=== PATIENT | female | born 1990 | race African-American/Black ===

== ENCOUNTER 2025-08-08 18:46 | Outpatient (CLI) | payer OTHER, SELFPAY ==
[2025-08-09 14:23] LABS: Strep B DNA Probe POSITIVE (Negative)
[2025-08-09 14:42] LABS: Strep B Susceptibility Needed? No
== END 2025-08-08 18:47 | disposition home or self-care (01) ==
LOC: NFLDREF 18:46
PROVIDERS: Visit Provider Advanced Practice Midwife
DX: Z34.93 Encounter for supervision of normal pregnancy, unspecified, third trimester (principal)
CPT/HCPCS: 87081; 87653

== ENCOUNTER 2025-08-28 09:30 | Inpatient (IN) | payer OTHER, SELFPAY ==
[2025-08-28] VITALS (16 sets, daily range): BP systolic 111–130; BP diastolic 64–82; PULSE 81–98; RESP 16–18; TEMP 36.4–37.1; O2SAT 98; BMI 33.6
[2025-08-28] MEDS: AMPICILLIN 2 GM in 0.9 % SODIUM CHLORIDE Mini-bag 100 ML IVPB (09:36)
--- NOTE | 2025-08-28 10:30 | W.PM.LDBA ---
Subjective History of Present Illness Time Seen by Provider: 09:15 Date Seen: 08/28/25 Narrative: Sofi is a 34 yo at 39 2/7 weeks gestation being admitted to Labor and Delivery for spontaneous onset of labor. She reports her contractions started last evening around 8 pm. She was able to get some naps in throughout the night as the contractions became more reguar and intense. She called labor and Delivery about 7 am to discuss managing at home vs coming in for evaluation. She did have a clinic appointment this morning at 845 which she opted to go to this instead of presenting to triage. At her appointment in clinic, she reported she had been having some wetness with contractions where her underwear were damp during contractions and she was wearing a pad. She wasn't sure if her water had broke but this started about 2 hours ago, so around the time she called or 7am. She reports it has been clear on her pad. She is coping well with contractions and is planning a waterbirth. She is supported in labor by her , Dante. Her full history and physical was dictated by GEORGES Negron on 08/16/2025. Please see this for details. Specific Issues/Plans G1 P 0 Partner: Dante? [place] at 32w4d from [facility] H&P completed by GEORGES Negron on 08/16/25? ? # Hep B Core total Positive- Hep B DNA negative-No f/u needed # Low-lying placenta?<1cm from OS at 20 wk US, RESOLVED 2 wk F/U- 1.4cm from OS 32wk F/U- resolved 07/03/25, 2.5 cm from os # Hydrosalpinx R ovary, endometrial polyps-F/U # Breech at 34 weeks, RESOLVED VERTEX confirmed by bedside US at 36 weeks #GBS+ Recommend antibiotics in labor ? ? IMAGING:??? 1st trimester: 01/09/2025 SLIUP 6w4d, Right ovarian cyst 4.4x2.6x1.9cm, Adjacent cresentic mildly complex cystic structure in right adnexal region 3.2x1.9x1.0 cm. Hydroslapinx cannot be excluded. Suggest PP follow up.??? Anatomy scan: 04/17/2025-Cardiac views and facial views inadequate. Otherwise normal anatomy. Low-lying placenta <1cm from internal cervical os. EFW and AC 90th%. Uterine fibroid 5.6x3.5x2.9cm.??? Others: 05/01/2025-F/U US- Normal facial profile, heart, outflow tracts and situs. Low-lying placenta 1.4 cm from internal os. 07/03/25- Single intrauterine gestation at 31 weeks 4 days yielding an ANJU of 08/31/2025 based on today's exam. 2. Placenta located approximately 2.5 cm from the internal cervical os. OB Labs:?? 12/22/2024? Blood type: O+, antibody screen negative.??? 02/01/25 Hgb: 12.0??? Platelets: 218??? Rubella: Immune??? Varicella: Not checked? RPR: non-reactive??? HBsAg: non-reactive??? Hep C: negative? HIV: negative??? UC: negative? GC/Chlamydia: 03/01/25 negative/negative??? Genetic screenin03/01/25 Low risk? 1hr gtt: 06/13/2025-112 hgb: 06/13/25-11.7??? COVID:??undecided Flu:? 07/25/2025 Tdap:?07/12/2025 RSV: 08/08/2025 32wk Mental Health:?PHQ - 1, AISHWARYA - 1 34wk hgb:??? Pap: 12/2023 outside clinic? OB - Problem Based A/P Additional Plan (1) Pain during labor: Status: Acute (2) 39 weeks gestation of : Status: Acute (3) Group B Streptococcus carrier, antepartum: Status: Acute (4) SROM (spontaneous rupture of membranes): Status: Acute Plan ASSESSMENT:? 34 at 39 2/7 weeks gestation? complicated by:?Hep B Core total Positive- Hep B DNA negative, low lying placenta resolved, hydrosalpinx r ovary, breech at 34 weeks resolved, GBS + Labor type: Spontaneous, Early labor? Category 1 FHR pattern.?? Labor complicated by: none GBS positive? ? PLAN:? 1. Routine intrapartum cares as ordered. Continue with expectant management? 2. Monitoring per policy, intermittent if reassuring NST? 3. Planning unmedicated . Desires water . Consent signed. Hep C negative. Candidate for analgesia of choice, if desired.?? 4. Patient encouraged to reposition and ambulate to promote physiologic labor and .? 5. GBS prophylaxis initiated for GBS positive status. Will treat with antibiotics per protocol. 6. Anticipate ? Delivery/Labor/Induction Plan Plan: expectant management OB Result Labs Blood Type: O (+) positive GBS Status: positive OB Exam Physical Exam Vital signs: Temp Pulse BP Pulse Ox 97.5 F L 86 129/73 98 08/28/25 16:05 08/28/25 16:28 08/28/25 16:28 08/28/25 09:45 Narrative: Vitals Reviewed Constitutional:? Alert and oriented x3 HEENT:? Normocephalic, atraumatic Neck:? Supple Lungs:? Clear to auscultation bilaterally Heart:? Regular rate and rhythm, no murmur, rub or gallop Abdomen:? Soft, nontender, and gravid. Vertex by Lenny's, confirmed with cervical exam. Extremities:? No edema or erythema Cervix: 5 cm/80%/-1 station/vertex NST: 130 bpm/moderate variability/15x15 accelerations/no decelerations/contractions every Detailed Labor and Delivery Exam Patient Gravid: yes
[2025-08-28] MEDS: CALCIUM CARBONATE 500 MG CHEW PO (10:45)
[2025-08-28] MEDS: AMPICILLIN 1 GM in 0.9 % SODIUM CHLORIDE Mini-bag 100 ML IVPB ×3 (13:31→21:40)
[2025-08-28] MEDS: ONDANSETRON 2 MG/ML inj 4 MG IV ×2 (13:40→21:44)
[2025-08-28] MEDS: LACTATED RINGERS 1000 ML 1,000 ML 500 ML IV ×2 (17:07→23:26)
--- NOTE | 2025-08-28 18:44 | PM.OBPNL ---
Subjective Time Seen by Provider: 16:05 Date Seen: 08/28/25 Narrative: Sofi is a at 39 2/7 weeks that presented earlier today for spontaneous labor with SROM prior to arrival. She has been coping well throughout the day with slow labor progress. She has been using position changes, labor support, and nitrous to help with pain management. She did use the small tub to try to relax and felt that helped. She is suppored in labor by her , Dante. Objective Exam: Objective: Constitutional: Alert and oriented x3, moderate distress, coping well Vital signs stable, see nurse documentation Abdomen: gravid, contractions palpate moderate/strong with contractions and soft between Cervix: 8 cm/90%/0 station/vertex NST: 135 bpm/moderate variability with episodes of minimal/15x15 accelerations/variable and occasional late decelerations/contractions every 2-5 minutes Vital Signs: Last Vital Signs Temp 98.8 F 08/28/25 17:53 Pulse 93 08/28/25 17:53 BP 111/69 08/28/25 17:53 Pulse Ox 98 08/28/25 09:45 Plan Plan: 34 at 39 2/7 weeks gestation? complicated by:?Hep B Core total Positive- Hep B DNA negative, low lying placenta resolved, hydrosalpinx r ovary, breech at 34 weeks resolved, GBS + Labor type: Spontaneous, Active labor, protracted Category 2 FHR pattern.?? Labor complicated by: none GBS positive? ? PLAN:? 1. Routine intrapartum cares as ordered. Continue with expectant management. Discussed management with labor warm-up/position changes to assist in position. If contractions space or remain every 5 minutes, it would be beneficial to consider IV pitocin. Patient does not desire this currently but would be open. We discussed position palpated as ROP, which is likely the cause of this slower labor progress. Patient is very motivated and willing to change positions and aware of concerns. All questions answered. 2. Monitoring per policy, continuous with intermittent decelerations present 3. Planning unmedicated . Desires water . Consent signed. Hep C negative. Candidate for analgesia of choice, if desired.?? 4. Patient encouraged to reposition and ambulate to promote physiologic labor and .? 5. GBS prophylaxis initiated for GBS positive status. Will treat with antibiotics per protocol. 6. Anticipate ?
[2025-08-28] MEDS: OXYTOCIN 30 unit/500 ML in NS 30 UNIT/500 ML BAG IVPB (19:34)
--- NOTE | 2025-08-28 21:53 | P.OBPN_ITS ---
Subjective Date Seen: 08/28/25 Narrative: Sofi is a 34 yo 1P0 at 39 2/7 weeks gestation that presented this morning for spontaneous onset of labor. She has progressed slowly throughout the day. She is supported in labor by her , Dante. She is coping well. She has used hydrotherapy for pain management. We had discussed pitocin augmentation earlier this evening if an anterior lip remained, after SVE was unchanged over 1 hour, patient agreed to pitocin and it was started at 0. Plan to recheck in 1 hour. Objective Exam: Objective: Constitutional: Alert and oriented x3, mild distress, coping well Vital signs stable, see nurse documentation Abdomen: gravid, contractions palpate moderate with contractions and soft between Cervix: 9.5 cm/90%/0 station/vertex at 2047, unchanged from previous exam; 10/100/0 with rechecked at 2132 outside of the tub NST: 135 bpm/moderate variability/15x15 accelerations/variable/early decelerations/contractions every 1-4 minutes apart Vital Signs: Last Vital Signs Temp 98.1 F 08/28/25 21:41 Pulse 86 08/28/25 21:29 Resp 16 08/28/25 19:52 BP 120/64 08/28/25 21:29 Pulse Ox 98 08/28/25 09:45 Contractions Monitor mode: Palpation Plan Plan: Plan: 34 at 39 2/7 weeks gestation? complicated by:?Hep B Core total Positive- Hep B DNA negative, low lying placenta resolved, hydrosalpinx r ovary, breech at 34 weeks resolved, GBS + Labor type: Spontaneous, Active labor, protracted Category 2 FHR pattern.?? Labor complicated by: none GBS positive? ? PLAN:? 1. Routine intrapartum cares as ordered. Augmentation with IV pitocin initiated at 1939, plan recheck in 1 hour was unchanged. Discussed reducing lip outside of the tub. Patient exited the tub and sat on the toilet before moving to the bed. Shortly after entering the bed, patient reported intense pressure and i nvoluntarily pushing with contraction. Rechecked at 2132, patient was complete. Pushing initiated at 2133, mostly with urge. 2. Monitoring per policy, continuous 3. Planning unmedicated . Desires water . Consent signed. Hep C negative. Candidate for analgesia of choice, if desired.?? 4. Patient encouraged to reposition and ambulate to promote physiologic labor and .? 5. GBS prophylaxis initiated for GBS positive status. Will treat with antibiotics per protocol. 6. Anticipate ?
[2025-08-29] VITALS (22 sets, daily range): BP systolic 95–125; BP diastolic 56–78; PULSE 66–89; RESP 16–17; TEMP 36.4–36.9; O2SAT 96–100
[2025-08-29] MEDS: LACTATED RINGERS 1000 ML 1,000 ML 125 ML IV ×2 (01:24→05:59)
[2025-08-29] MEDS: AMPICILLIN 1 GM in 0.9 % SODIUM CHLORIDE Mini-bag 100 ML IVPB (01:35)
--- NOTE | 2025-08-29 02:05 | P.OBCN_ITS ---
OB - CN: HPI Date of Consult Date Seen: 08/29/25 Consult date: 08/29/25 Requesting Physician: Mariela Figueroa CNM Primary Care Provider: Not a Local Provider Consult Narrative Reason for consult: arrest of labor Narrative: The patient is a 34 year old G 1 P 0 at 39 3/7 weeks gestation that was admitted to the Center on 08/28/25 for spontaneous labor following SROM. GBS positive, adequately treated. Made adequate progress in labor, pitocin augmentation started when labor arrested at 9 cm for 2 hours. Complete at 2133 and has been actively pushing for 4 hours. Pitocin currently at 6 mu/min. Unmedicated. History of Present Dating criteria: based on LMP care: good care Ultrasounds: normal 1st trimester US and normal mid trimester US History History 1 Elective abortions Para 0 Spontaneous abortions Hx # Term Pregnancies Ectopic pregnancies Hx # Pregnancies Multiple births Number of Living Children 0 Labs Blood type: O (+) positive GBS status: positive OB Labs: Lab Assessment Start: 08/28/25 09:16 Freq: ONCE Status: Complete Protocol: PC.OBGBS Activity Type Activity Date Activity User E-sign Co-sign Detail Recorded Client Recorded Date Recorded By Document 08/28/25 09:24 LNP No Response 08/28/25 09:25 LNP 08/28/25 09:24 Lab Assessment GBS Status positive Is Patient Allergic to Penicillin? 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 (ICD-10) Exposure to herpes simplex virus (HSV) ?Z20.828 - Contact with and (suspected) exposure to other viral communicable diseases (ICD-10) Surgical History Hx of appendectomy ?Z90.49 - Acquired absence of other specified parts of digestive tract (ICD- 10) Family History Mother Prediabetes High blood pressure Sister High blood pressure Brother High blood pressure Maternal Grandmother Advancing dementia Social History What is your current living situation?: I presently have a place to live Problems where you live: no known problems In the past 12 months, utilities in danger of being shut off: no In past 12 months, lack of transportation kept you from medical appts, meetings, work, or getting things needed for daily living: no In the past 12 mos, have been you worried that your food would run out before you had money to buy more?: never true In the past 12 mos, the food you bought just didn't last and you didn't have money to buy more?: never true Smoking Status: Never smoker Do you use any of these nicotine containing products: None Within the last year, have you been humiliated or emotionally abused in other ways by your partner or ex-partner: no Within the last year, have you been afraid of your partner or ex-partner: no Within the last year, have you been raped or forced to have any kind of sexual activity by your partner or ex-partner: no Within the last year, have you been kicked, hit, slapped, or otherwise physically hurt by your partner or ex-partner: no HARK total score: 0 How often does anyone, including family, friends and others, physically hurt you : never How often does anyone, including family, friends and others, insult or talk down to you: never How often does anyone, including family, friends and others, threaten you with harm: never How often does anyone, including family, friends and others, scream or curse at you: never Meds Home Medications and Allergies Home Medications ?Medication ?Instructions ?Recorded ?Confirmed ?Type cholecalciferol (vitamin D3) 125 125 mcg PO QDAY 07/1208/28/25 History mcg (5,000 unit) capsule coenzyme Q10 10 mg capsule 10 mg PO ONCE 07/12/2508/12 History docosahexaenoic acid 200 mg 200 mg PO DAILY 07/12/25 1 10/28/24 History capsule ( DHA) docusate sodium 50 mg capsule 50 mg PO QDAY 07/12/25 1 10/28/24 History ferrous fumarate 325 mg (106 mg 325 mg PO QDAY 5 08/28/25 History iron) tablet magnesium glycinate See Rx Instructions PO .COMP ANGEL 07/12/25 08/28/25 History omega-3 fatty acids 1,000 mg 1,000 mg PO QDAY 07/12/25 08/28/25 History capsule aspirin 81 mg tablet 81 mg PO DAILY 08/28/2508/12 History Allergies Allergy/AdvReac Type Severity Reaction Status Date / Time No Known Drug Allergies Allergy Verified 08/28/25 10:26 OB - H&P: Exam Physical Exam: Vital signs: Temp Pulse Resp BP Pulse Ox 98.2 F 83 16 112/64 98 08/29/25 01:28 08/29/25 01:28 08/29/25 01:28 08/29/25 01:28 08/28/25 09:45 Constitutional: Constitutional: mild distress (with contraction discomfort) Detailed Labor and Delivery Exam: Patient Gravid: yes Dilation (cm): 10 Effacement (%): 100 Cervix position: mid Consistency: soft Comments: back along the maternal left, confirmed by limited ultrasound at the bedside. Caput at 2+ station, but BPD at 0-1+ station, with most of bony skull impacted above maternal pubic bone. position somewhat asynclitic, LOP /LOT, though difficult to confirm due to caput. Fetus (Single): Heart Rate Baseline: 135 Monitor Accelerations: Present Monitor Decelerations: Variable OB - CN: A/P Assessment and Plan (1) Pain during labor: Status: Acute (2) 39 weeks gestation of : Status: Acute (3) Group B Streptococcus carrier, antepartum: Status: Acute (4) SROM (spontaneous rupture of membranes): Status: Acute (5) Second stage labor arrest: Status: Acute Plan The vertex is too high to safely consider operative vaginal delivery. Patient has been actively pushing for 4 hours, and I suspect position is LOT or LOP and asynclitic. I would recommend delivery. We reviewed the relative risks and benefits of section under spinal anesthesia, risks including but not limited to bleeding, blood transfusion, infection, and injury to other organs or infant. Informed consent obtained. OR crew notified. Will discontinue pitocin infusion while awaiting preparations for delivery.
--- NOTE | 2025-08-29 02:05 | PM.OBPNL ---
Subjective Date Seen: 08/29/25 Narrative: Sofi is a at 39 3/7 weeks gestation here for spontaneous onset of labor. She was complete at 2132 and pushing was initiated at 2133. She pushed effectively for 3.5 hours. At this time, maternal fatigue and increasing caput was discussed with patient and her . Discussed and recommended evaluation by Dr. Santiago for possible vacuum vs alternative delivery. Patient was agreeable to this at the time. At 4 hours, Dr. Santiago was at bedside. Please see her note for further details. Due to increased caput and likely malposition, C/s was recommended. Patient and agreeable to plan. Objective Exam: Objective: Constitutional: Alert and oriented x3, moderate/severe distress, coping well Vital signs stable, see nurse documentation Abdomen: gravid, contractions palpate moderate/strong with contractions and soft between Cervix: complete/0 with caput to +2 NST: 135 bpm/moderate variability/15x15 accelerations/variable decelerations/contractions every 1-4 minutes Vital Signs: Last Vital Signs Temp 98.2 F 08/29/25 01:28 Pulse 83 08/29/25 01:28 Resp 16 08/29/25 01:28 BP 112/64 08/29/25 01:28 Pulse Ox 98 08/28/25 09:45 Plan Plan: Plan: 34 at 39 3/7 weeks gestation? complicated by:?Hep B Core total Positive- Hep B DNA negative, low lying placenta resolved, hydrosalpinx r ovary, breech at 34 weeks resolved, GBS + Labor type: Spontaneous, Protracted active Arrest of descent Category 2 FHR pattern.?? Labor complicated by: none GBS positive? ? PLAN:? Care assumed by Dr. Santiago for arrest of descent and plan to proceed with c/s, please see her consultation note for further details. Pitocin stopped. GBS adequately treated
[2025-08-29] MEDS: AZITHROMYCIN 500 MG in 0.9 % SODIUM CHLORIDE 250 ml 250 ML 255 MG IVPB (02:21)
[2025-08-29 02:32] LABS: Hematocrit* 35.1 % (33.0-51.0); Hemoglobin* 12.0 gm/dL (12.0-16.0); Immature Granulocytes Abs Auto 0.02 K/uL (0.00-0.30); Immature Granulocytes Pct Auto 0.2 %; Mean Corpuscular HGB Conc 34 gm/dL (32-36); Mean Corpuscular Hemoglobin 30 pg (26-34); Mean Corpuscular Volume 89 fL (80-100); RDW Coefficient of Variation % 13.7 % (11.5-15.5); Red Blood Count* 3.96 m/uL (4.00-5.20); White Blood Count* 10.61 K/uL (4.50-11.00)
--- NOTE | 2025-08-29 02:34 | PM.OBPRCCS ---
Procedure Pre-op diagnosis: 1. 39 3/7 weeks 2. Secondary arrest of labor in the second stage 3. LOT/LOP position 4. History of appendectomy for ruptured appendix. Post-op diagnosis: same Procedure Done: Global Will [facility] bill your pro fee for this procedure?: Yes Blood Loss Measurement Type: QBL (748 mL) Bakri Used: No IV fluids (mL): 900 Urine Output (mL): 400 Surgeon: Kelle Santiago MD Anesthesia Type: Spinal and TAP Block Findings: Extensive adhesions which distorted the normal anatomy. The bladder was adherent to the lower uterine segment and tethered to the anterior peritoneum. Folds of adhesions mimicked peritoneum on the anterior surface of the uterine serosa. Sheets of filmy adhesions encased the uterus and tethered the uterine serosa to the fallopian tubes, ovaries and sigmoid colon posteriorly. Live-born male infant, cephalic presentation, position was LOT/slightly angled LOP and asynclitic. Clear amniotic fluid. Apgars 9 and 9 at 1 and 5 minutes respectively. Weight 8 lb 2 oz or 3690 g. Procedure Name: Primary low transverse section with extensive lysis of adhesions. Procedure Description: After obtaining informed consent, the patient was taken to the operating room where spinal anesthesia was obtained and found to be adequate. She was prepared and draped in the normal sterile fashion in the dorsal supine position with a leftward tilt. Brothers catheter was sterilely inserted into the bladder during the prep. A Pfannenstiel skin incision was made with a scalpel. This incision was carried down to the underlying layer of fascia with the Bovie. The fascia was incised in the midline and the incision extended laterally. The superior and inferior aspects of the fascial incision were grasped with Jason clamps, elevated and the underlying rectus muscles dissected off sharply and with electrocautery. The rectus muscles were then in the midline. At this point, it became extremely difficult to identify the anterior peritoneum. The bladder was trapped between the anterior peritoneum and lower uterine segment. There were also significant sheets of adhesions overlying the anterior uterine serosa. Careful dissection was performed to free the bladder from the lower uterine segment. Extensive adhesion lysis was needed to isolate the lower uterine segment. The García O retractor was then placed into the incision. The lower uterine segment was then incised in a transverse fashion with the scalpel. Upon entry into the uterus, clear amniotic fluid was noted. The uterine incision was extended laterally with blunt finger fractionation. Cephalad pressure was placed on the vertex by an RN while I reached inferiorly to cup my hand around the vertex, which I then was able to elevate to the level of the hysterotomy incision. The infant's head was delivered atraumatically, followed by the remainder of the infant's body. The nose and mouth were suctioned with the bulb suction. The cord was doubly clamped and cut after 30 second delay, and the was handed off the field to Valeria Amaya NP for evaluation. The placenta was delivered spontaneously with umbilical cord traction and fundal massage. The uterus was cleared of all clots and debris. The uterine incision was reapproximated in a running locking fashion with a 0 chromic suture. There was some active bleeding noted along the right lateral aspect of the hysterotomy incision where a extended inferiorly about 1.5 cm. This was suture ligated with 0 chromic. There was also some bleeding noted from a hematoma that had formed along the superior aspect of the hysterotomy closure beneath the serosa. This was decompressed by pressing on the bulging tissue, and suture ligated with the second layer of 0 chromic suture that was used to imbricate the length of the incision. At this point, the uterus was exteriorized so that I could isolate the right broad ligament and make sure that there was no bleeding from the inferior extension on that side. The additional extensive posterior adhesions were observed. The filmy adhesions had to be lysed, and a segment of a sheet of adhesive tissue was fully excised, freeing up the fallopian tubes and some of the sigmoid colon, so that I could insert my hand into the posterior cul-de-sac on the right to isolate the right broad ligament. The tissues near the right uterine vessels appeared to be hemostatic at this point, and no additional sutures were needed for hemostasis. The uterus was returned to the abdomen. The García O retractor was removed. The hysterotomy closure was inspected and found to be hemostatic. The bladder was then backfilled with 100 mL sterile milk and carefully inspected. No bladder defects were noted. The Brothers catheter was unclamped and the bladder drained. All instruments were removed. The subfascial tissues were carefully inspected and hemostasis assured. The fascia was reapproximated in a running fashion with a looped 0 Maxon suture. The subcutaneous tissues were copiously irrigated. Hemostasis was assured. The skin was closed in a subcuticular fashion with 4-0 Vicryl. Surgical glue and dressing were applied. A TAP block was administered by the ELECTRIC SEALING MACHINE OPERATOR. The patient tolerated the procedure well. Sponge, lap, needle, and instrument counts were reported as correct x2. The patient was taken to the recovery room, awake, and in stable condition. She did receive 2 grams of IV Ancef and 500 mg azithromycin preoperatively. Toradol 30 mg IV was administered at the conclusion of the procedure. Complications: None. Pathology: specimen obtained, sent to pathology (Placenta (unscheduled ) and adhesions) Surgery Debrief Performed: Yes Condition: stable Disposition: floor
[2025-08-29 02:36] LABS: Lymphocytes Absolute Auto 0.80 K/uL (0.90-2.90); Slide Review Reflex No
--- NOTE | 2025-08-29 03:48 | P.ANES_ITS ---
Anesthesia Charges Start Date/Time Anesthesia Start Date: 08/29/25 Anesthesia Start Time: 02:44 Stop Date/Time Anesthesia Stop Date: 08/29/25 Anesthesia Stop Time: 04:59 Summary Emergency: BULB INSPECTOR Coding CPT Codes CPT Codes: ANESTH CS DELIVERY - 99096 ([id number]) P2 - PATIENT W/MILD SYST DISEASE, QZ - BULB INSPECTOR SVC W/O CHARTER DRIVER BY Additional Codes: Summary - Emergency: BULB INSPECTOR ([id number])
--- NOTE | 2025-08-29 03:48 | P.NB_ITS ---
Nerve Block Nerve Block Time Seen by Provider: 04:48 Date Seen: 08/29/25 Type of block requested by surgeon for post-operative analgesia: TAP Side: bilateral Time out performed: Yes Verification of patient name: Yes Verification of date of : Yes Site marking: site marked Name of person performing procedure: Jack Pérez Continuous monitoring Was continuous monitoring of O2 sat, B/P, nurse monitoring, recorded every 15 minutes?: Yes Procedure Checklist: sterile prep, needles and gloves Ultrasound guided. Images saved: Yes Medications given in 5ml increments after negative aspiration: Marcaine %: 0.25 mL: 30 Needle gauge: 20 and Exparel mL: 10 Needle gauge: 20 Patient tolerated procedure well: Yes Additional comments: Injected in 5 mL increments after negative aspiration Block Charges Block Charge (with Pro Fee): TAP Bilateral Use of Ultrasound Machine for Block: Yes- US Guidance/pain block
--- NOTE | 2025-08-29 03:48 | W.ANESCHARGE ---
Anesthesia Charges Start Date/Time Anesthesia Start Date: 08/29/25 Anesthesia Start Time: 02:44 Stop Date/Time Anesthesia Stop Date: 08/29/25 Anesthesia Stop Time: 04:59 Summary Emergency: PRECISION FILER HAND Coding CPT Codes CPT Codes: ANESTH CS DELIVERY - 55710 ([id number]) P2 - PATIENT W/MILD SYST DISEASE, QZ - PRECISION FILER HAND SVC W/O CURRICULUM FACILITATOR BY Additional Codes: Summary - Emergency: PRECISION FILER HAND ([id number])
[2025-08-29] MEDS: DOCUSATE SODIUM 100 MG CAPSULE PO (07:50)
[2025-08-29] MEDS: ACETAMINOPHEN 500 MG TABLET 1000 MG PO ×3 (07:51→19:47)
[2025-08-30 05:24] VITALS: BP 98/59; PULSE 93; RESP 16; TEMP 36.7; O2SAT 95
[2025-08-30 06:54] LABS: Hemoglobin* 9.9 gm/dL (12.0-16.0)
--- NOTE | 2025-08-30 08:18 | PM.OBPNVD1 ---
OB - PN:Subj Subjective Date Seen: 08/30/25 Patient comments OB post-: pain well controlled (controlled overall, but still in a bit of pain. encouraged pt to try oxycodone along with her scheduled Tylenol and ketoralac) [place] infant status: feeding status: exclusively Narrative: lamont is a 34 y.o. G 1 P 1 who was admitted to [facility] & [facility] for labor. ?She had a section that was uncomplicated. The patient feels well. ?The pain is fairly well controlled with current medications; but encouraged to try oxycodone as still appears to be a bit uncomfortable even after ketorolac. ?She has no new complaints. ?She is breast feeding and reports things are going well. the patient has done well.? Vitals have been stable.? She has remained afebrile.? Has a good appetite, is tolerating a general diet. ?She is voiding without difficulty.? She is passing gas and has not had a bowel movement.? She is ambulating and denies any dizziness.? Has small amount of rubra lochia. Problems: none OB - PN: Obj Exam Physical Exam: Vital signs: Temp Pulse Resp BP Pulse Ox O2 Del Method 98.0 F 93 16 98/59 L 95 Room Air 08/30/25 05:24 08/30/25 05:24 08/30/25 05:24 08/30/25 05:24 08/30/25 05:24 08/30/25 05:24 Narrative: GENERAL APPEARANCE:? normal affect, alert, no distress MOOD:? appropriate ABDOMEN:? soft, non-tender the uterine fundus is @ Umbilicus, Midline and is appropriate for the stage of recovery. PERINEUM:? not assessed; no concerns EXTREMITIES:? trace edema Incision: Healing well, no surrounding erythema, abnormal induration or discharge Constitutional: Constitutional: mild distress Comments: encouraged to take oxycodone as an adjunct to current medications. pt desires to try. OB - PN: Obj Data Labs Labs: Laboratory Results - last 24 hr 08/30/25 06:47 Hgb 9.9 L OB - PN: A/P Delivery Assessment and Plan (1) Pain during labor: Status: Acute (2) 39 weeks gestation of : Status: Acute (3) Group B Streptococcus carrier, antepartum: Status: Acute (4) SROM (spontaneous rupture of membranes): Status: Acute (5) Second stage labor arrest: Status: Acute (6) S/P section: Status: Acute Plan day: 1 Plan: routine care Comments: Anticipate d/c tomorrow or Thursday may see counselor if desires
[2025-08-30 08:48] VITALS: BP 107/70; PULSE 90; RESP 18; TEMP 36.4; O2SAT 98
[2025-08-30] MEDS: DOCUSATE SODIUM 100 MG CAPSULE PO (10:00)
[2025-08-30] MEDS: SODIUM CHLORIDE 0.9 % (FLUSH) 10 ML SYRINGE IVF (11:54)
[2025-08-30] MEDS: IBUPROFEN 600 MG TABLET PO ×2 (12:03→18:47)
[2025-08-30 13:30] VITALS: BP 112/73; PULSE 86; RESP 18; TEMP 36.7; O2SAT 98
[2025-08-30] MEDS: SIMETHICONE 80 MG TAB.CHEW PO ×2 (14:50→21:59)
[2025-08-30 22:38] VITALS: BP 99/64; PULSE 84; RESP 18; TEMP 36.8; O2SAT 98
[2025-08-31 01:34] VITALS: BP 105/68; PULSE 82; RESP 18; TEMP 36.8; O2SAT 98
[2025-08-31] MEDS: IBUPROFEN 600 MG TABLET PO ×2 (01:44→09:03)
--- NOTE | 2025-08-31 08:13 | P.DS_ITS ---
DS: Providers Provider Date Seen: 08/31/25 Date of admission: 08/28/25 09:30 Primary care physician: Not a Local Provider Admitting Clinician: Mariela Figueroa CNM Consults: 08/29/25 02:05 Consult to Physician [CONS] Routine Comment: Consulting Provider: Kelle Santiago Has provider been notified: Yes Attending Physician on discharge: Gely SU Date of Discharge: 08/31/25 DS: Diagnosis Discharge Diagnosis (1) S/P section: Status: Acute Problem details: arrest of descent (2) care and examination of lactating mother: Status: Acute Exam Narrative: Exam Narrative: GENERAL APPEARANCE:? normal affect, alert, no distress MOOD:? appropriate CHEST:? clear to auscultation HEART:? regular rate and rhythm ABDOMEN:? soft, non-tender the uterine fundus is 4 cm above Umbilicus, Midline and is appropriate for the stage of recovery and having not yet voided this morning. EXTREMITIES:? normal and mild edema Incision: Clean dry and intact. NO erythema or discharge. Glued and open to air Const: Vital Signs, click to edit/add: Vital Signs - 24 hr 08/30/25 08:48 08/30/25 13:30 08/30/25 22:38 Temperature 97.6 F 98.0 F 98.3 F Pulse Rate [Pulse Oximeter] 90 86 84 Respiratory Rate 18 18 18 Blood Pressure [Le ft Arm] 107/70 112/73 99/64 Pulse Oximetry 98 98 98 Oxygen Delivery Me thod Room Air Room Air Room Air 08/31/25 01:34 Temperature 98.2 F Pulse Rate [Pulse Oximeter] 82 Respiratory Rate 18 Blood Pressure [Le ft Arm] 105/68 Pulse Oximetry 98 Oxygen Delivery Me thod Room Air OB - DS: Summary Hospital Course Hospital Course: Sofi is a 34 y.o. G 1 P 1001 who was admitted to [facility] & [facility] for spontaneous onset of labor.? She had a primary section for arrest of descent in the 2nd stage that was uncomplicated. The patient feels well.? The pain is well controlled with current medications. She has no new complaints.? She is breast feeding and reports things are going well. the patient has done well.? Vitals have been stable.? She has remained afebrile.? Has a good appetite, is tolerating a general diet.? She is voiding without difficulty.? She is passing gas and has not had a bowel movement.? She is ambulating and denies any dizziness.? Has small amount of rubra lochia. She is undecided of plan for prevention.? ?? Problems: none? ?? plan:? Discharge home with baby.? Follow up in 1-2 weeks and 6 weeks.? , may see if needed? Hgb 9.9. ? ? Labs WNL or stable with trending? Peripartum Data Infant delivery method: Primary C/S; Labored Laceration description: None Episiotomy description: None Procedures: Procedures Operation Date: 08/29/25 02:30 Actual Procedure Side Surgeon p Section Kelle Santiago MD complications: none [place] Infant Gender: Male Discharge Plan: Home Status at Discharge Functional status at discharge: independent ambulation Overall status at discharge: patient is progressing back to baseline Time Spent with Patient Time attestation: Total time spent providing and/or coordinating discharge services: Time spent: Less than 30 minutes Discharge Plan Discharge Disposition: Home, Self-Care Date of Admission: 08/28/25 09:30 Attending Provider on Discharge: Velma Kennedy Consulting Providers: Kelle Santiago Primary Care Provider: Provider,Not a Local Condition: Stable Anticipated Discharge Date/Time: 08/31/25 12:00 Discharge Medications: New ibuprofen 600 mg Tablet 600 mg PO Q6H PRN (Reason: Pain) Qty: 60 0RF oxycodone 5 mg Tablet 5 - 10 mg PO Q4H PRN (Reason: Pain) Qty: 10 0RF Continued omega-3 fatty acids 1,000 mg capsule 1,000 mg PO QDAY coenzyme Q10 10 mg capsule 10 mg PO ONCE docusate sodium 50 mg capsule 50 mg PO QDAY cholecalciferol (vitamin D3) 125 mcg (5,000 unit) capsule 125 mcg PO QDAY DHA 200 mg capsule 200 mg PO DAILY ferrous fumarate 325 mg (106 mg iron) tablet 325 mg PO QDAY magnesium glycinate 100 mg magnesium capsule See Rx Instructions PO .COMPLEX Rx Instructions: as directed orally; Discontinued aspirin 81 mg tablet 81 mg PO DAILY Discharge Orders: Discharge Order (Routine); Ordered 08/31/25 Ordered By: Velma Kennedy Patient Education: Bupivacaine Liposome (By injection), OB Over the Counter Medication Information, OB /Breast Feeding Additional Instructions: Discharge instructions were reviewed with the patient including signs and symptoms of infection and home going medications Lifting Restrictions: 20 pounds for 6 weeks No not submerge incision under water X 2 weeks? Nothing vaginally for 6 weeks: no tampons or intercourse Do not drive while taking narcotic pain medication(s) Off Work or School for 6 weeks Symptoms to report to doctor: * Bleeding that saturates more than one pad per hour * Passing clots larger than the size of a golf ball * Pain not relieved by prescribed medication * Fever above 100.4 degrees Fahrenheit * A foul vaginal odor * Difficulty in emotions, mood, and functions * Thoughts of hurting yourself and/or * Painful, reddened area in your breast * Any drainage, redness, or tenderness in your IV/epidural site * Severe headache that doesn't improve after taking medications * Changes in vision, including temporary loss of vision, blurred vision, and/or light sensitivity * Upper abdominal pain (usually under ribs on the right side) * Decrease in urination or painful, frequent urinating * Chest pain * Shortness of breath * Tenderness or pain with redness and/swelling in the calf(s) of your leg 1-22-week visit: incision check, discuss feeding concerns, review control options and screen for anxiety/depression. 6-week visit for an annual exam. consultation services are available to all mothers and babies for the first year after delivery.? To make an appointment, please call [phone]. Activity Level: No strenuous activity and Light activity Discharge Diet: Regular Follow Up Appointments: [facility] [Provider Group] Forms: [employer] Info Instructions
[2025-08-31 09:00] VITALS: BP 111/72; PULSE 70; RESP 16; O2SAT 98
[2025-08-31] MEDS: DOCUSATE SODIUM 100 MG CAPSULE PO (09:03)
== END 2025-08-31 13:35 | disposition home or self-care (01) | DRG 788 ==
LOC: OB OUT 10:31 → OB 10:31
PROVIDERS: Obstetrics & Gynecology; Admitting Provider Advanced Practice Midwife; Visit Provider Advanced Practice Midwife
PROC: 10D00Z1 Extraction of Products of Conception, Low, Open Approach (ICD-10-PCS; CPT 59514; principal; 2025-08-29 02:30)
DX: O32.8XX0 Maternal care for other malpresentation of fetus, not applicable or unspecified (principal); O32.4XX0 Maternal care for high head at term, not applicable or unspecified; O63.1 Prolonged second stage (of labor); O99.824 Streptococcus B carrier state complicating childbirth; G89.18 Other acute postprocedural pain; R76.89 Other specified abnormal immunological findings in serum; Z3A.39 39 weeks gestation of pregnancy; Z37.0 Single live birth
CPT/HCPCS: 01961; 36415; 64488; 76942; 84112; 85018; 85025; 86592; 86850; 86900; 86901; 99140; G0463; A4314; A9270; J0290; J0456; J0665; J0666; J0690; J1100; J1885; J2371; J2405; J2590; J7050; J7120

== ENCOUNTER 2025-09-15 14:20 | Outpatient (CLI) | payer OTHER, SELFPAY ==
--- NOTE | 2025-09-15 16:33 | W.PM.LAC.MC ---
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) Exposure to herpes simplex virus (HSV) ?Z20.828 - Contact with and (suspected) exposure to other viral communicable diseases (ICD-10) Work Plans: return to work Nov or December Delivery Information Delivery type: Primary C/S; Labored Gestational Age: 39+3 Gestational Weight For Age: AGA Weight: 3.69 kg Discharge Weight: 3.35 kg Percentage weight loss: 9.3 Baby's Information Baby's Age at Visit: 17 days Baby's Provider or Clinic: [facility] Jaundice: No Past Experience Past Experience: No Current Frequency of Day Feedings: every 2 hrs, some cluster feeding in afternoon/evening Frequency of Night Feedings: q3 hrs Both Breasts: Yes (sometimes 1, sometimes 2 w/ea feeding) Suck: strong, comfortable per mom Latch: mom thinks ok Length of Time: 10-20 min Goals: 1 year Pumping Pumping: Yes Quantity Pumped: gets 1-1.5 oz after first AM feeding, not much other times of the day Supplementing EBM Supplement: Yes (sometimes gives EBM and then breastfeeds after) Formula Supplement: No Baby Elimination Number of Wet Diapers a Day: ea feeding Number of BM a Day: several/day-yellow, seedy Breast/Nipple Condition Breast Information: Breasts are symmetrical with rounded lower quadrants, intramammary distance is less than 1.5 inches. No erythema. Nipples are supple, everted prior to feeding. Breast Shape: Round and Pliable Engorgement: No Maternal Nipple Condition - Left: Common Nipple Maternal Nipple Condition - Right: Common Nipple Sore Nipples: Yes (only occasionally) Interventions for Sore Nipples: [place]/Nipple Cream Baby Assessment Skin: Normal Tongue/frenulum: Normal/elastic Palate: Average Lips: Relaxed and Symmetrical Jaw Alignment: Symmetrical Mucosa: [place], moist Onsite Observation Pre-Feed weight: 3.644 kg Post-Feed weight: 3.692 kg Milk Transferred (mL): 48 Position: Cross cradle Attachment/latch-on achieved: With difficulty (goes to breast easily, a bit challenging to get a deep latch but eventually able to do so) Suck pattern: Suck burst and normal rest Swallow: Audible, consistent (did take 3-4 minutes to get mom's milk to letdown before swallowing noted) Behavior following feed: Alert, content Pre-Nursing Left Nipple: Within Normal Limits Pre-Nursing Right Nipple: Within Normal Limits Post-Nursing Left Nipple: Within Normal Limits Post-Nursing Right Nipple: Within Normal Limits Assessments/Interventions Assessments/Interventions: Katy latched to mom's LEFT breast, latched shallow initially, took several attempts for a wide deep latch and then he stayed nursing for 14 minutes, started getting sleepy and flutter sucking so ended this side. Transferred 26 ml of milk Katy then latched to mom's RIGHT breast, latched more easily and more vigourously and nursed for another 16 minutes. Transferred 22 ml of milk. Total volume transferred: 48 ml, last feeding was 2 hrs ago Feeding plan below Discussed mom to be sure she is getting calories and hydration needs met Education provided: Early feeding cues to maximize timing of latching, Asymmetric latch technique for wide/deep latch to increase milk, Transfer for baby and increase comfort for mom (importance of deep latch for more milk intake reviewed with mom as baby has been on more shallowly), Supply/demand nature of milk supply, Need for frequent stimulation/milk removal, Alternative feeding methods (SNS, cup, finger feeding, bottling) and Pumping for milk management Feeding Plan: Feed every 2-3 hs based on hunger cues; no longer than 3 hrs between feedings for at least another week as mom tries to build milk supply Breastfeed for 10-15 on each breast, listening for active swallowing; ensure baby goes to both breasts ea feeding for volume needed Pump both breasts for: 15 minutes after every other feeding as able for 3-4 pumps/day; a full 20 minutes if pumping instead of If going to give a bottle, try to breastfeed first and then give bottle so he empties breast more fully when he's hungry Feed baby 15-30 ml of pumped milk if he acts hungry after feeding; discussed what hunger cues look like for and discussed weight gain. From Tu to today look better, but he's not back to birthweight so concerned about mom's supply Use a syringe/feeding tube, cup, or bottle for feedings based on preference Try skin to skin to increase milk production Follow-Up Suggested follow up: Appointment in 1 week (or phone call if desired to discuss how feeding/pumping is going as travel to clinic is challenging for mom ) Time Spent Time spent with patient (min): 75 Meds Home Medications and Allergies Home Medications ?Medication ?Instructions ?Recorded ?Confirmed ?Type cholecalciferol (vitamin D3) 125 125 mcg PO QDAY 07/12/25 09/12/25 History mcg (5,000 unit) capsule coenzyme Q10 10 mg capsule 10 mg PO ONCE 07/12/25 09/12/25 History docosahexaenoic acid 200 mg 200 mg PO DAILY 07/12/25 09/12/25 History capsule ( DHA) docusate sodium 50 mg capsule 50 mg PO QDAY 07/12/25 09/12/25 History ferrous fumarate 325 mg (106 mg 325 mg PO QDAY 07/12/25 09/12/25 History iron) tablet omega-3 fatty acids 1,000 mg 1,000 mg PO QDAY 07/12/25 09/12/25 History capsule ibuprofen 600 mg tablet 600 mg PO Q6H PRN Pain #60 tabs 08/31/25 09/12/25 Rx Allergies Allergy/AdvReac Type Severity Reaction Status Date / Time No Known Drug Allergies Allergy Verified 09/12/25 08:50
== END 2025-09-15 14:21 | disposition home or self-care (01) ==
LOC: OB LAC 14:21
PROVIDERS: Visit Provider Obstetrics & Gynecology
DX: Z39.1 Encounter for care and examination of lactating mother (principal)
CPT/HCPCS: G0463

== ENCOUNTER 2025-10-09 14:07 | Outpatient (CLI) | payer OTHER, SELFPAY ==
--- NOTE | 2025-10-09 14:00 | CRLHL7_ITS ---
For Patients: As a result of the Century Cures Act, medical imaging exams and procedure reports are released immediately into your electronic medical record. You may view this report before your referring provider. If you have questions, please contact your health care provider. INDICATION: Chronic Salpingitis COMPARISON: None. TECHNIQUE: 2D edward-scale and color Doppler images were acquired of the pelvis using a transabdominal and transvaginal approach. Transvaginal imaging performed to better visualize the endometrial stripe and ovaries. FINDINGS: Right fundal fibroid measures 3.1 x 2.8 x 3.9 cm. Mid anterior fibroid measures 2.4 x 2.3 x 2.9 cm. Uterus measures 10.3 cm in length by 5.4 cm in AP diameter by 7.3 cm in transverse dimension. The endometrial lining measures 8.3 mm in composite thickness. The right ovary measures 4.6 x 3.0 x 2.7 cm in size and the left ovary measures 3.3 x 3.1 x 2.6 cm. The ovaries demonstrate normal arterial and venous blood flow on color Doppler analysis. Left adnexal fluid is present which measures 5.9 x 2.6 x 5.8 cm. IMPRESSION: Left adnexal fluid collection measures 5.9 x 2.6 x 5.8 cm. Normal adjacent left ovary. Dictated by Maxwell Butler MD @ 10/09/2025 3:40:27 PM (Electronically Signed)
== END 2025-10-09 14:08 | disposition home or self-care (01) ==
LOC: US 14:07
PROVIDERS: Visit Provider Registered Nurse
DX: N70.11 Chronic salpingitis (principal); D25.9 Leiomyoma of uterus, unspecified; E04.9 Nontoxic goiter, unspecified
CPT/HCPCS: 76830; 76856

== ENCOUNTER 2025-10-09 16:20 | Outpatient (CLI) | payer OTHER, SELFPAY | END 2025-10-09 16:21 | disposition home or self-care (01) | LOC: NFLDREF 16:21 | PROVIDERS: Visit Provider Advanced Practice Midwife | DX: E04.9 Nontoxic goiter, unspecified (principal) | CPT/HCPCS: 84443 ==

== ENCOUNTER 2025-10-11 15:09 | Outpatient (CLI) | payer OTHER, SELFPAY ==
--- NOTE | 2025-10-11 15:00 | CRLHL7_ITS ---
For Patients: As a result of the Century Cures Act, medical imaging exams and procedure reports are released immediately into your electronic medical record. You may view this report before your referring provider. If you have questions, please contact your health care provider. INDICATION: Nontoxic goiter, unspecified COMPARISON: none TECHNIQUE: Sanchez scale and color Doppler images were acquired of the thyroid gland. FINDINGS: SS measures 3 millimeters. Solid and cystic nodule right thyroid lobe measures 3.0 x 1.6 x 2.0 cm, TR 3. The right lobe measures 5.0 x 2.0 x 2.7 cm and the left lobe measures 4.4 x 1.0 x 1.4 cm in size. The color Doppler images demonstrate normal vascularity. There is no evidence of cervical lymphadenopathy or parathyroid mass. IMPRESSION: 3.0 cm TR 3 nodule right thyroid lobe. FNA recommended. Dictated by Maxwell Butler MD @ 10/11/2025 4:00:42 PM (Electronically Signed)
== END 2025-10-11 15:10 | disposition home or self-care (01) ==
LOC: US 15:10
PROVIDERS: Visit Provider Advanced Practice Midwife
DX: E04.9 Nontoxic goiter, unspecified (principal)
CPT/HCPCS: 76536